=== PATIENT | female | born 1990 | race Two or more races ===

== ENCOUNTER 2022-09-30 14:40 | Outpatient (REF) | payer OTHER, SELFPAY ==
[2022-09-30 15:41] LABS: MANUAL DIFF FLAG NO
[2022-09-30 16:17] LABS: Basophils Percent Auto 0.5 % (0-2); Eosinophils Absolute Auto 0.1 X10*3/uL (0.0-0.4); Eosinophils Percent Auto 1.8 % (0-4); Hematocrit 42.2 % (37.0-47.0); Hemoglobin 14.1 g/dl (12.0-16.0); Imm Gran Abs Auto 0.02 X10*3/uL (0.00-0.03); Imm Gran Pct Auto 0.3 % (0.0-0.4); Lymphocytes Absolute Auto 2.4 X10*3/uL (1.2-4.9); Lymphocytes Percent Auto 39.5 % (20-40); Mean Corpuscular HGB Conc 33.4 g/dl (31.0-35.0); Mean Corpuscular Hemoglobin 29.4 pg (27.0-33.0); Mean Corpuscular Volume 87.9 fL (80.0-98.0); Mean Platelet Volume 10.9 fL (9.4-12.3); Monocytes Absolute Auto 0.3 X10*3/uL (0.1-1.2); Monocytes Percent Auto 4.9 % (2-11); Neutrophils Absolute Auto 3.2 x10*3/uL (2.0-8.3); Platelet Count 263 X10*3/uL (160-400); Red Cell Distribution Width 12.8 % (11.0-16.0); White Blood Count 6.1 X10*3/uL (4.8-10.8)
[2022-09-30 16:48] LABS: Alanine Aminotransferase 26 U/L (0-31); Albumin Level 4.3 g/dL (3.5-5.0); Alkaline Phosphatase 43 U/L (39-117); Anion Gap 13 (12-20); Aspartate Amino Transferase 19 U/L (5-31); Bilirubin Total 0.8 mg/dL (0.0-1.0); Blood Urea Nitrogen 8 mg/dL (9-16); Calcium 9.4 mg/dL (8.4-10.2); Carbon Dioxide 22 mmol/L (22-29); Chloride 110 mmol/L (96-108); Estimated Glomerular Filt Rate > 60; Glucose Random 84 mg/dL (60-115); Sodium 141 mmol/L (135-145)
[2022-09-30 17:01] LABS: TSH reflex Free T4 1.73 uIU/mL (0.32-4.0)
[2022-09-30 17:04] LABS: Erythrocyte Sedimentation Rate 6 MM/HR (0-20)
[2022-09-30 17:50] LABS: Appearance Urine Cloudy; Color Urine Dark Yellow; Glucose Urine UA Negative (Negative); Leukocyte Esterase Urine Trace (Negative); Nitrite Urine Negative (Negative); PH 5.5 (5.0-9.0); Specific Gravity - Urine >= 1.030 (1.005-1.025); UMIC TRIGGER UA YES; Urine Blood Small (1+) (Negative); Urine Ketones Trace mg/dL (Negative); Urine Protein Trace mg/dL (Neg-Trace)
[2022-09-30 17:58] LABS: Bacteria Urine 4+ (None Seen); Squamous Epithelial Cell Urine >20 /HPF (0-2); WBC Urine 0-5 /HPF (0-5)
[2022-09-30 18:02] LABS: Protein/Creatinine Ratio, Ur 0.04 (<0.2); Total Protein Urine Random 19 mg/dL (<12)
[2022-10-03 04:46] LABS: HBS Num1 12.61 mIU/mL (0-7.99); HBc Num1 0.07 S/CO (0.00-0.79); HBsAGNum1 0.34 S/CO (0.00-0.99); Hepatitis B Core Antibody Nonreactive (Nonreactive); Hepatitis B Surface Antigen Negative (Negative); ~HepC Num1 0.09 S/CO (0.00-0.79); ~Hepatitis A Antibody IgM Nonreactive (Nonreactive); ~Hepatitis B Surface Antibody REACTIVE (Nonreactive); ~Hepatitis C Antibody Nonreactive (Nonreactive)
[2022-10-03 19:13] LABS: Thyroglobulin Antibodies <1 IU/mL (< or = 1); Thyroid Peroxidase Antibodies <1 IU/mL (<9)
[2022-10-03 21:33] LABS: Anti DNA DS Antibody 4 IU/mL; Antibody to SS-A Antigen <1.0 NEG AI (<1.0 NEG); Antibody to SS-B Antigen <1.0 NEG AI (<1.0 NEG); SM/Ribonucleoprotein Ab <1.0 NEG AI (<1.0 NEG); Smith Protein <1.0 NEG AI (<1.0 NEG)
[2022-10-04 04:44] LABS: Complement C3 154 mg/dL (83-193)
[2022-10-04 16:43] LABS: Cardiolipin IgG Ab <2.0 GPL-U/mL; Cardiolipin IgM Ab <2.0 MPL-U/mL
[2022-10-05 22:23] LABS: PTT (LAC) Screen 38 sec (<=40)
[2022-10-07 02:09] LABS: Beta-2 Glycoprotein IgA <2.0 U/mL (<20.0); Beta-2 Glycoprotein IgG <2.0 U/mL (<20.0); Beta-2 Glycoprotein IgM <2.0 U/mL (<20.0)
== END 2022-09-30 14:41 | disposition home or self-care (01) ==
LOC: HO.LAB 14:40
PROVIDERS: PCP Internal Medicine; Visit Provider Student in an Organized Health Care Education/Training Program
DX: Z11.59 Encounter for screening for other viral diseases (principal); M32.9 Systemic lupus erythematosus, unspecified; D68.61 Antiphospholipid syndrome; E07.9 Disorder of thyroid, unspecified; M06.9 Rheumatoid arthritis, unspecified; M54.2 Cervicalgia; R76.8 Other specified abnormal immunological findings in serum; Z72.89 Other problems related to lifestyle
CPT/HCPCS: 36415; 80053; 81001; 84156; 84443; 85025; 85597; 85613; 85652; 85730; 86140; 86146; 86147; 86160; 86225; 86235; 86376; 86431; 86704; 86706; 86709; 86800; 86803; 87340; 99202

== ENCOUNTER 2023-02-16 14:42 | Outpatient (AMB) | payer OTHER, SELFPAY ==
--- NOTE | 2023-02-16 14:44 | MHC.OFFVIS ---
Intake Vital Signs 02/16/23 14:46 Height 5 ft Weight 144 lb 13.499 oz BMI 28.3 BP 108/62 Blood Pressure Location Rt brachial Position Sitting Pulse 93 Pulse Source Pulse Oximeter Temp 98 F Temp Source Skin Pulse Oximetry (%) 98 Intake Visit Reasons: CANDIDO +ve Intake Note: Pt presents today for follow up and test results. Continues to have intermittent neck pain. Reports pain, inflammation rectal area; bleeding when uses bathroom. House Manager Required: No Accompanied by: Self / Same As Patient Allergies No Known Allergies Allergy (Unverified 02/16/23 14:49) Medication List - Last Reconciled 02/16/23 by Cait Grey MD acetaminophen (Pain Relief (acetaminophen)) 325 mg orally 650mg three times a day PRN PRN; albuterol sulfate 90 mcg/actuation 2 puffs inhalation Q6H PRN bupropion HCl 100 mg PO QAM escitalopram oxalate mg PO gabapentin 300 mg PO BEDTIME hydroxyzine pamoate 25 mg PO TID ibuprofen 800 mg PO Q8H levonorgestrel-ethinyl estrad 0.15-0.03 mg (21) 1 tab PO DAILY zolpidem 10 mg PO BEDTIME PRN HPI HPI Comments History of Present Illness Details Patient returns for follow-up after completion of her diagnostic workup. Patient states that her neck pain is improving. States that last week she had an episode with nasal congestion, headaches, fever as well as a rash on her upper lip. The rash on her upper lip was burning a little, improved with Vaseline gel. States that sometimes she gets wrist pain when chopping vegetables at home that improves after a few minutes. Initial history: This is a 32-year-old female who presents for evaluation of positive CANDIDO and borderline positive rheumatoid factor. Her about a year and half ago patient started developing itchy skin rashes on her hands and wrists. Rashes improve with OTC cream called Ja working hands cream she has been having neck pain for about a year and a half. She had a neck MRI which showed There is contact with the right C7 nerve root in the right lateral recess. She was referred to physical therapy with little improvement. She takes ibuprofen and muscle relaxants for her neck pain with some improvement. She denies any other joint pain or swelling. States that her face is always red on her cheese and across her nasal bridge for years. Generally worse in the sun. She denies any history of DVT/PE. No history of Raynaud's. No blood or froth in urine. Denies fevers She is unaware of any family history of autoimmune rheumatic disease. FORMERLY [facility], [facility]–1983 Medical History (Updated 02/16/23 @ 15:16 by Cait Grey MD) Lupus Bilateral leg pain Cervical radiculopathy Neck pain Acute eczema Surgical History History of 2 sections Family History Maternal Grandmother Cancer of breast Father Asthma Prediabetes Arthritis Mother No problems noted. Social History Household Members: Children Alcohol intake: never Patient Tobacco Use Status: Never used Tobacco Current occupational status: unemployed Review of Systems Const Denies fever(s), Reports weight gain and Denies weight loss Skin/Breast Reports rash Physical Exam Vital Signs: Last Vital Signs Temp 98 F 02/16/23 14:46 Pulse 93 02/16/23 14:46 BP 108/62 02/16/23 14:46 Pulse Ox 98 02/16/23 14:46 BMI result Body Mass Index 28.3 Const General: cooperative, healthy appearing and comfortable Nutritional Appearance: obese Orientation/consciousness: patient oriented x3 Limitations: no limitations HEENT Head: Yes normocephalic and Yes atraumatic Resp Effort & Inspection: normal respiratory effort and able to speak in complete sentences Auscultation: clear to auscultation bilaterally Cardio Rate: regular rate Rhythm: regular rhythm GI Inspection: No distended Palpation (GI): Soft to palpation and nontender Skin General skin exam: no rashes or lesions noted Neuro General: patient oriented x3 Extrem Other: No active synovitis Normal range of motion of hands, elbows, shoulders. Normal nailfold capillaroscopy Results Reviewed Results Reviewed: MRI CERVICAL SPINE WITHOUT CONTRAST ? HISTORY: Neck pain. Cervical radiculopathy. ? Comparison: Cervical spine 08/05/2021. ? Technique: MRI of the cervical spine was performed without contrast. ? FINDINGS: The cerebellar tonsils are normal in position. The spinal cord is normal in caliber and signal. ? There is reversal of the normal curve. Vertebral body heights and bone marrow signal are preserved. ? At C2-C3, there is no appreciable spinal canal or neuroforaminal stenosis. ? At C3-C4, there is disc desiccation. There is no appreciable spinal canal or neuroforaminal stenosis. ? At C4-C5, there is disc desiccation. There is no appreciable spinal canal or neuroforaminal stenosis. ? At C5-C6, there is disc desiccation. There is mild disc bulging. There is mild right neural foraminal narrowing from right posterior disc/osteophyte complex which also contacts the right C7 nerve root in the right lateral recess is narrowed. ? At C6-C7, there is no appreciable spinal canal or neuroforaminal stenosis. ? At C7-T1, there is no appreciable spinal canal or neuroforaminal stenosis. ? IMPRESSION IMPRESSION: Mild right neural foraminal narrowing and right lateral recess narrowing at C5-6. There is contact with the right C7 nerve root in the right lateral recess. ? Multilevel degenerative disc disease. ? Paravertebral muscle spasm. Labs 03/2022? CBC unremarkable ESR 3? CRP 0.66 (<0.5) CMP unremarkable? RF 16 (<15) CCP negative a? CANDIDO 1-640 homogeneous Assessment & Plan Assessment & Plan (1) CANDIDO positive: Code(s): R76.8 - Other specified abnormal immunological findings in serum Plan: This is a 32-year-old female who presents for evaluation of a positive CANDIDO 1-640 homogeneous, and borderline positive rheumatoid factor. These labs were ordered in the setting of neck pain and skin rashes. Patient showed me a rash on her upper lip that happened a week ago when she was having a mild viral infection, the rash was vesicular. Rash looked rather consistent with a viral infection. She has negative sub serologies and normal inflammatory markers. I do not see any signs of an autoimmune rheumatic disease upon my evaluation. No need to start any DMARDs at the moment. Will continue to monitor patient for the development the of an autoimmune rheumatic disease. Follow-up in 6 months Plan I spent 16 minutes reviewing patient's chart, evaluating patient, counseling patient and documenting in the chart Coding Level of Care Code Est Pt Level 3 (41838) Diagnoses CANDIDO positive R76.8
[2023-02-16 14:46] VITALS: BP 108/62; PULSE 93; TEMP 36.6; O2SAT 98; BMI 28.3
== END 2023-02-16 15:09 | disposition home or self-care (01) ==
PROVIDERS: PCP Internal Medicine; Visit Provider Student in an Organized Health Care Education/Training Program
DX: R76.8 Other specified abnormal immunological findings in serum (principal)
CPT/HCPCS: 99213

== ENCOUNTER → 2023-02-16 14:42 | Outpatient (BNVA) | payer OTHER, SELFPAY | PROVIDERS: PCP Internal Medicine; Visit Provider Student in an Organized Health Care Education/Training Program | DX: R76.8 Other specified abnormal immunological findings in serum (principal) | CPT/HCPCS: 99212 ==